=== PATIENT | male | born 1995 ===

== ENCOUNTER 2019-08-01 09:46 | Emergency (ER) | payer OTHER ==
[~2019-08-01] VITALS: Ht 170.2 cm; Wt 79.5 kg
[2019-08-01 10:03] VITALS: BP 126/76; TEMP 99
[2019-08-01] MEDS ORDERED: NORCO 325 MG-51 TAB PO (11:37)
[2019-08-01 11:45] VITALS: PULSE 74
== END 2019-08-01 11:46 | disposition home or self-care (01) ==
LOC: COL.ER 09:46
DX: S80.02XA Contusion of left knee, initial encounter (principal); S69.82XA Other specified injuries of left wrist, hand and finger(s), initial encounter; R58 Hemorrhage, not elsewhere classified; F17.210 Nicotine dependence, cigarettes, uncomplicated; V29.9XXA Motorcycle rider (driver) (passenger) injured in unspecified traffic accident, initial encounter